=== PATIENT | female | born 1970 | race African-American/Black ===

== ENCOUNTER 2017-05-31 06:48 | Inpatient (IN) | payer MEDICARE, MEDICAID ==
[~2017-05-31] VITALS: Ht 160 cm; Wt 65.4 kg
[2017-05-31] MEDS ORDERED: SODIUM CHLORIDE 0.9% 1,000 ML IV ONE (08:31)
[2017-05-31 09:49] LABS: Hematocrit 32.2 % (36.0-46.0); Hemoglobin 10.5 g/dL (12.2-16.2); Mean Corpuscular Hemoglobin 30.4 pg (28.0-32.0); Mean Corpuscular Hgb Conc. 32.5 g/dL (32.0-36.0); Mean Corpuscular Volume 93.4 fL (80.0-100.0); Platelet Count (auto) 314 10^3/uL (140-450); Red Blood Cells 3.45 10^6/uL (4.0-5.20); Red Cell Distribution Width 15.6 % (11.8-14.3); White Blood Cell 19.1 10^3/uL (4.4-10.8)
[2017-05-31 09:53] LABS: Band Neutrophils % (manual) 0; Basophils % (manual) 0 (0.0-2.0); Blast Cells 0; INR 0.9 (0.9-1.15); Metamyelocytes % 0; Myelocytes % 0; Partial Thromboplastin Time 24.4 sec (22.64-33.71); Promyelocytes % 0; Prothrombin Time 9.8 sec (9.37-12.3); Reactive Lymphocytes 0
[2017-05-31 09:58] LABS: BUN/Creatinine Ratio 5.6; Calcium 10.5 mg/dL (8.5-10.1); Magnesium 3.4 mg/dL (1.6-2.6); Potassium 5.2 mmol/L (3.5-5.1)
[2017-05-31 10:03] LABS: Basophils # (auto) 0.2 uL; Basophils % (auto) 0.9 % (0.0-2.0); Eosinophils # (auto) 1.8 uL; Eosinophils % (auto) 9.2 % (0.0-7.0); Lymphocytes # (auto) 0.8 uL; Monocytes # (auto) 0.7 uL; Monocytes % (auto) 3.4 % (0.0-12.0); Neutrophils # (auto) 15.7 uL; Neutrophils % (auto) 82.5 % (37.0-80.0)
[2017-05-31 10:19] LABS: Eosinophils % (manual) 6 (0-7); Lymphocytes % (manual) 11 (10.0-50.0); Monocytes % (manual) 11 (0-12)
[2017-05-31] MEDS ORDERED: VANCOMYCIN PER PHARMACY 0 MG IV SCH (10:45)
[2017-05-31] MEDS ORDERED: VANCOMYCIN 500 MG in D5W 5% 100 ML IV ONE ×2 (10:45→12:30)
[2017-05-31] MEDS ORDERED: PIPERACILLIN-TAZOB 2.25GM 50 ML IV ONE (10:45)
[2017-05-31] MEDS ORDERED: PIPERACILLIN-TAZOB 0.75 GM in D5W 5% 50 ML IV PRN (11:15)
[2017-05-31] MEDS ORDERED: NALBUPHINE HCL 10 MG/1ml INJECTION IV ONE (11:15)
[2017-05-31] MEDS ORDERED: PROMETHAZINE HCL 25 MG/ML 1ML IV ONE (11:15)
[2017-05-31] MEDS ORDERED: FAMOTIDINE 20 MG TAB PO SCH (13:12)
[2017-05-31] MEDS ORDERED: ENOXAPARIN SOD 30 MG/0.3 ML SYRINGE SC SCH (13:13)
[2017-05-31] MEDS ORDERED: TEMAZEPAM 15 MG CAP PO PRN (13:15)
[2017-05-31] MEDS ORDERED: NITROGLYCERIN 0.4 MG SL TAB SL PRN (13:15)
[2017-05-31] MEDS ORDERED: ACETAMINOPHEN 500 MG TAB PO PRN (13:15)
[2017-05-31] MEDS ORDERED: MORPHINE SULFATE 4 MG/ML SYR/VIAL IV PRN (13:15)
[2017-05-31] MEDS ORDERED: LACTULOSE 20Gm/30ML SOLN PO PRN (13:15)
[2017-05-31] MEDS ORDERED: LORazepam 0.5 MG TAB PO PRN (13:15)
[2017-05-31] MEDS ORDERED: PROMETHAZINE HCL 25 MG/ML 1ML IV PRN (13:15)
[2017-05-31] MEDS ORDERED: HYDROcodone-ACET 5/325MG TAB PO PRN (13:15)
[2017-05-31] MEDS: MORPHINE SULFATE 4 MG/ML SYR/VIAL IV PRN ×3 (13:52→22:04)
[2017-05-31 17:30] VITALS: BP 169/105
[2017-05-31] MEDS ORDERED: cloNIDine HCL 0.1 MG TAB PO PRN (21:15)
[2017-05-31 21:51] VITALS: BP 178/97
[2017-05-31] MEDS ORDERED: PIPERACILLIN-TAZOB 2.25GM 50 ML IV SCH (22:00)
[2017-05-31] MEDS ORDERED: LABETALOL HCL 200 MG TAB PO SCH (22:00)
[2017-06-01 01:20] VITALS: BP 170/109
== END 2017-06-01 02:15 | disposition left against medical advice (07) | DRG 314 ==
LOC: ER 06:48 → TELE 06:49 → TELE-WESTW 17:22
PROVIDERS: ADMIT Internal Medicine; ATTEND Internal Medicine
DX: T82.318A Breakdown (mechanical) of other vascular grafts, initial encounter (principal); N18.6 End stage renal disease; I12.0 Hypertensive chronic kidney disease with stage 5 chronic kidney disease or end stage renal disease; T82.7XXA Infection and inflammatory reaction due to other cardiac and vascular devices, implants and grafts, initial encounter; E87.5 Hyperkalemia; L03.116 Cellulitis of left lower limb; N25.81 Secondary hyperparathyroidism of renal origin; Y83.2 Surgical operation with anastomosis, bypass or graft as the cause of abnormal reaction of the patient, or of later complication, without mention of misadventure at the time of the procedure; T82.868A Thrombosis due to vascular prosthetic devices, implants and grafts, initial encounter; D63.8 Anemia in other chronic diseases classified elsewhere; Z53.21 Procedure and treatment not carried out due to patient leaving prior to being seen by health care provider; Y92.89 Other specified places as the place of occurrence of the external cause; Z99.2 Dependence on renal dialysis; Z82.49 Family history of ischemic heart disease and other diseases of the circulatory system
CPT/HCPCS: 36415; 73700; 80048; 83735; 85007; 85027; 85610; 85652; 85730; 87040; 96361; 96365; 96366; 96367; 96372; 96375; J2543; J7060